=== PATIENT | female | born 1980 | race Caucasian/White ===

== ENCOUNTER → 2017-02-16 | Outpatient (CLI) | payer OTHER, BC ==
[~2017-02-16] MED LIST: ALBU18002 INH; ATV5X PO; BCPILLS PO; BIOT1CAP3 PO; CHOL1000 PO; FLNIN/ NAE; FLX/5 PO; IMT100 PO; MULT-240 PO; NRN800 PO; OMEG10007 PO; PRENTAB26 PO; TERA5CAP PO; TPM100 PO; ULT50 PO
== END | disposition home or self-care (01) ==
LOC: C.PAPS 08:30
PROVIDERS: ATTEND Obstetrics & Gynecology
DX: Z01.419 Encounter for gynecological examination (general) (routine) without abnormal findings (principal)

== ENCOUNTER 2017-04-03 15:50 | Emergency (ER) | payer OTHER, BC ==
[~2017-04-03] VITALS: Ht 167.6 cm; Wt 56.6 kg
[~2017-04-03 15:50] MED LIST changes: -ALBU18002 INH; -ATV5X PO; -BCPILLS PO; -BIOT1CAP3 PO; -CHOL1000 PO; -FLNIN/ NAE; -FLX/5 PO; -IMT100 PO; -MULT-240 PO; -NRN800 PO; -OMEG10007 PO; -TERA5CAP PO; -TPM100 PO; -ULT50 PO
[2017-04-03 15:55] VITALS: TEMP 36.7; Ht 167.6 cm; Wt 56.6 kg
[2017-04-03 16:10] LABS: URINE APPEARANCE TURBID (CLEAR); URINE BILIRUBIN NEG (NEG); URINE COLOR YELLOW; URINE EPITHELIAL CELL AUTO >30 /lpf (0-5); URINE NITRITE NEG (NEG); URINE PH 7.5 (4.5-7.5); URINE SPECIFIC GRAVITY 1.014 (1.000-1.030); UROBILINOGEN NEG (NEG); ZZUR CULT IF INDIC CLEAN CATCH NO
[2017-04-03 16:16] LABS: MANUAL MICROSCOPIC REQUIRED? NO; REVIEW REQ? NO
[2017-04-03] MEDS ORDERED: DEXAMETHASONE SOD INJ 4 MG/ML VIAL IV STA (16:29)
[2017-04-03] MEDS ORDERED: PROMETHAZINE HCL INJ 25 MG in SODIUM CHLORIDE 0.9% 50ML 50 ML IV STA (16:29)
[2017-04-03] MEDS ORDERED: DiphenhydrAMINE HCL 50 MG/ML VIAL IV STA (16:29)
[2017-04-03 17:03] LABS: BASO % 0.4 %; BASO ABS # 0.02 K/uL (0-0.2); COMPLETE YES; EOS % 5.1 %; LYMPH % 20.2 %; LYMPH ABS # 1.11 K/uL (1.2-3.4); MEAN CELL VOLUME 99.3 fL (80-100); MEAN CORPUSCULAR HGB CONC 32.2 g/dl (32-36); MEAN PLATELET VOLUME 10.8 fL (7.4-10.4); MONO % 3.3 %; PLATELET COUNT 174 K/uL (130-400); RED BLOOD COUNT 4.13 M/uL (4.2-5.4)
[2017-04-03] MEDS ORDERED: BIOT1CAP3 PO (17:03)
[2017-04-03] MEDS ORDERED: ATV5X PO (17:03)
[2017-04-03] MEDS ORDERED: IMT100 PO (17:03)
[2017-04-03] MEDS ORDERED: FLX/5 PO (17:03)
[2017-04-03] MEDS ORDERED: OMEG10007 PO (17:03)
[2017-04-03] MEDS ORDERED: ULT50 PO (17:03)
[2017-04-03] MEDS ORDERED: BCPILLS PO (17:03)
[2017-04-03] MEDS ORDERED: FLNIN/ NAE (17:03)
[2017-04-03] MEDS ORDERED: MULT-240 PO (17:03)
[2017-04-03] MEDS ORDERED: NRN800 PO (17:03)
[2017-04-03] MEDS ORDERED: ALBU18002 INH (17:03)
[2017-04-03] MEDS ORDERED: CHOL1000 PO (17:03)
[2017-04-03] MEDS ORDERED: TPM100 PO (17:03)
[2017-04-03] MEDS ORDERED: TERA5CAP PO (17:03)
[2017-04-03 17:19] LABS: PARTIAL THROMBOPLASTIN RATIO 1.1; PROTHROMBIN TIME (PATIENT) 10.4 SECONDS (9.0-12.0)
[2017-04-03 17:27] LABS: CALCIUM 8.5 mg/dl (8.5-10.1); CREATININE 0.84 mg/dl (0.60-1.20); POTASSIUM 3.7 mmol/L (3.5-5.1)
[2017-04-03 17:56] LABS: PREG INTERNAL NEGATIVE QC NEG CLEAR BACKGROUND; PREG INTERNAL POSITIVE QC POS CONTROL LINE
--- NOTE | 2017-04-03 18:20 | DIAGNOSTIC IMAGING REPORT ---
HEAD CT NONCONTRAST CT DOSE: 537.48 mGy.cm HISTORY: Headache headache x 1 weeklong rt side TECHNIQUE: Multiaxial CT images of the head were performed without the use of intravenous contrast. Comparison: None. Findings: The paranasal sinuses and mastoid air cells are clear. The calvarium and skull base are intact. The ventricles and sulci are within normal limits. There is no mass, hematoma, midline shift, or acute infarct. Impression: No acute intracranial abnormality. Electronically signed by: Jean Bonner M.D. 04/03/2017 6:19 PM Dictated Date/Time: 04/03/2017 6:19 PM
[2017-04-03] MEDS ORDERED: HYDROmorphone INJ 1 MG/ML SYR IV STA (18:29)
--- NOTE | 2017-04-03 19:42 | EMERGENCY ROOM VISIT NOTE ---
History First contact with patient: 16:17 Chief Complaint: HEADACHE Stated Complaint: MIGRAINE,BULGING VEIN,HEAD SENSITIVITY,DIZZY History of Present Illness The patient is a 36 year old female who presents to the Emergency Room with complaints of headache. The patient states she has a history of migraine headaches. She states initially she thought her current headache was a migraine. It was on the right side of the head which is typical for her migraines but usually she feels slightly nauseated and can take an Imitrex and abort the headache before it worsens. She states she tried Imitrex and it did not help. She tried the Imitrex again without any relief. She states the headache there is in intensity and has been going on for one week. She states it goes from a 5 to a 10. Currently she rates the headache at a 5 out of 10. The patient also states that the headache is different than her migraines that she has some pain at the base of her neck and states that she sees a being bulging on the right frontal region intermittently when the headache is more severe. The patient denies any vomiting. The patient denies any other visual changes. She states she went to [place] and she was told to come to the emergency room. The patient states there is a history of aneurysm in her terminal grandmother but that was abdominal. Review of Systems 10 system review was performed and was negative unless stated otherwise history of present illness. Past Medical/Surgical History RSD, ankle surgery, knee surgery, jaw surgery, hand surgery, asthma Social History Smoking Status: Never Smoker Alcohol Use: occasionally Marital Status: Housing Status: lives with family Occupation Status: unemployed Current/Historical Medications Scheduled Biotin (Biotin), 1 CAP PO DAILY Control Pills ( Control Pills), 1 TAB PO DAILY Cholecalciferol (Vitamin D3), 1,000 MCG PO DAILY Fish Oil ([place]-3), 1 CAP PO DAILY Fluticasone Propionate (Fluticasone Propionate), 2 SPRAYS SANGEETHA DAILY Gabapentin (Gabapentin), 800 MG PO QID Multiple Vitamins W/ Minerals (Womens One Daily), 1 TAB PO DAILY Terazosin (Hytrin), 5 MG PO HS Topiramate (Topiramate), 100 MG PO BID Scheduled PRN Albuterol Sulfate (Proair Respiclick), 2 PUFFS INH UD PRN for SOB/Wheezing Cyclobenzaprine HCl (Cyclobenzaprine HCl), 5 MG PO TID PRN for Muscle Spasm Lorazepam (Lorazepam), 0.5 MG PO DAILY PRN for Anxiety Sumatriptan Succinate (Imitrex), 100 MG PO UD PRN for Migraine Tramadol HCl (Tramadol HCl), 50 MG PO UD PRN for Pain Allergies Coded Allergies: Mold (Blue) Cheese (Verified Allergy, Severe, SHORTNESS OF BREATH, 08/11/15 ) THROAT SWELLING Codeine (Verified Allergy, Unknown, HIVES, 08/11/15) Penicillins (Verified Allergy, Unknown, HIVES-HAS TOLERATED KEFLEX PER DR CHAPIN, 08/11/15) Physical Exam Vital Signs Date Time Temp Pulse Resp B/P Pulse Ox O2 Delivery O2 Flow Rate FiO2 04/03/17 18:07 92 16 104/89 93 Room Air 04/03/17 15:55 36.7 115 16 149/96 98 Room Air Physical Exam GENERAL: 36-year-old white female appears in no acute distress. MENTAL STATUS: Patient is alert and oriented x3 HEAD: The patient has tenderness palpation over the right parietal region of her head. EYES: PERRLA. EOMs intact. EARS: Canals clear. TMs without fluid level noted. NECK: Supple, no lymphadenopathy noted. No carotid bruits noted. LUNGS: Clear auscultation without wheezes rales or rhonchi. CARDIAC: Regular rate and rhythm without murmur. Pulses is full and equal throughout. NEURO:Cranial nerves two through 12 intact. Cerebellar function intact with [id number]. Fine motor intact with alternating finger motions. CERVICAL SPINE: Patient is nontender to palpation over the spinous processes in the paravertebral region. Patient has full range of motion but it is painful. She does have known cervical disease. Medical Decision & Procedures ER Provider Diagnostic Interpretation: HEAD CT NONCONTRAST CT DOSE: 537.48 mGy.cm HISTORY: Headache headache x 1 weeklong rt side TECHNIQUE: Multiaxial CT images of the head were performed without the use of intravenous contrast. Comparison: None. Findings: The paranasal sinuses and mastoid air cells are clear. The calvarium and skull base are intact. The ventricles and sulci are within normal limits. There is no mass, hematoma, midline shift, or acute infarct. Impression: No acute intracranial abnormality. Electronically signed by: Jean Bonner M.D. 04/03/2017 6:19 PM Dictated Date/Time: 04/03/2017 6:19 PM Laboratory Results 04/03/17 16:50 Red Blood Count 4.13, Mean Corpuscular Volume 99.3, Mean Corpuscular Hemoglobin 32.0, Mean Corpuscular Hemoglobin Concent 32.2, Mean Platelet Volume 10.8, Neutrophils (%) (Auto) 71.0, Lymphocytes (%) (Auto) 20.2, Monocytes (%) (Auto) 3.3, Eosinophils (%) (Auto) 5.1, Basophils (%) (Auto) 0.4, Neutrophils # (Auto) 3.91, Lymphocytes # (Auto) 1.11, Monocytes # (Auto) 0.18, Eosinophils # (Auto) 0.28, Basophils # (Auto) 0.02 04/03/17 16:50 Test 04/03/17 15:55 04/03/17 16:50 Urine Color YELLOW Urine Appearance TURBID (CLEAR) Urine pH 7.5 (4.5-7.5) Urine Specific [place] 1.014 (1.000-1.030) Urine Protein NEG (NEG) Urine Glucose (UA) NEG (NEG) Urine Ketones NEG (NEG) Urine Occult Blood NEG (NEG) Urine Nitrite NEG (NEG) Urine Bilirubin NEG (NEG) Urine Urobilinogen NEG (NEG) Urine Leukocyte Esterase NEG (NEG) Urine WBC (Auto) 1-5 /hpf (0-5) Urine RBC (Auto) 0-4 /hpf (0-4) Urine Hyaline Casts (Auto) 1-5 /lpf (0-5) Urine Epithelial Cells (Auto) >30 /lpf (0-5) Urine Bacteria (Auto) NEG (NEG) Urine Test NEG (NEG) White Blood Count 5.50 K/uL (4.8-10.8) Red Blood Count 4.13 M/uL (4.2-5.4) Hemoglobin 13.2 g/dL (12.0-16.0) Hematocrit 41.0 % (37-47) Mean Corpuscular Volume 99.3 fL (80-100) Mean Corpuscular Hemoglobin 32.0 pg (25-34) Mean Corpuscular Hemoglobin Concent 32.2 g/dl (32-36) Platelet Count 174 K/uL (130-400) Mean Platelet Volume 10.8 fL (7.4-10.4) Neutrophils (%) (Auto) 71.0 % Lymphocytes (%) (Auto) 20.2 % Monocytes (%) (Auto) 3.3 % Eosinophils (%) (Auto) 5.1 % Basophils (%) (Auto) 0.4 % Neutrophils # (Auto) 3.91 K/uL (1.4-6.5) Lymphocytes # (Auto) 1.11 K/uL (1.2-3.4) Monocytes # (Auto) 0.18 K/uL (0.11-0.59) Eosinophils # (Auto) 0.28 K/uL (0-0.5) Basophils # (Auto) 0.02 K/uL (0-0.2) RDW Standard Deviation 44.6 fL (36.4-46.3) RDW Coefficient of Variation 12.3 % (11.5-14.5) Immature Granulocyte % (Auto) 0.0 % Immature Granulocyte # (Auto) 0.00 K/uL (0.00-0.02) Erythrocyte Sedimentation Rate 6 mm/hr (0-21) Prothrombin Time 10.4 SECONDS (9.0-12.0) Prothromb Time International Ratio 1.0 (0.9-1.1) Activated Partial Thromboplast Time 27.4 SECONDS (21.0-31.0) Partial Thromboplastin Ratio 1.1 Anion Gap 7.0 mmol/L (3-11) Est Creatinine Clear Calc Drug Dose 81.1 ml/min Estimated GFR () 102.2 Estimated GFR (Non- 88.2 BUN/Creatinine Ratio 17.0 (10-20) Calcium Level 8.5 mg/dl (8.5-10.1) Medications Administered Medications (Trade) Dose Ordered Sig/Qiana Route Start Time Stop Time Status Last Admin Dose Admin Diphenhydramine HCl (Benadryl Inj) 50 mg NOW STAT IV 04/03/17 16:29 04/03/17 16:34 DC 04/03/17 17:02 50 MG Dexamethasone Sodium Phosphate 10 mg 10 mg NOW STAT IV 04/03/17 16:29 04/03/17 16:34 DC 04/03/17 16:29 10 MG Promethazine HCl/ Sodium Chloride (Phenergan Inj/ Nss 50ml) 51 ml @ 204 mls/hr NOW STAT IV 04/03/17 16:29 04/03/17 16:43 DC 04/03/17 17:18 204 MLS/HR Hydromorphone HCl (Dilaudid Inj) 1 mg NOW STAT IV 04/03/17 18:29 04/03/17 18:30 DC 04/03/17 18:57 1 MG ED Course The patient was evaluated. The patient's EMR and medication list were reviewed. IV access was obtained. The patient was given Benadryl 25 mg IV, Decadron 10 mg IV, Phenergan 25 mg IV for her headache. CBC and differential, renal profile, coags, sedimentation rate was ordered. Urine dip was negative for . CT of the head was ordered and interpreted by the radiologist as above without any acute findings. Labs are reviewed and were unremarkable. The patient was informed of the findings and reevaluated. The patient stated she still had pain in the right side of her head. The patient was then given Dilaudid 1 mg IV. The patient was reevaluated and was feeling much better. The patient does admit that she has tramadol to take at home but did not take it for this pain. The patient was discharged home in stable condition with her driving. Medical Decision Differential includes: Flare of the patient's RSD in this area, Acute intracranial bleed, trauma, meningitis, encephalitis, increased intracranial pressure, mass or mass effect, facial or dental infection, temporal arteritis, CVA, TIA, acute hypertensive emergency, sinusitis, carbon monoxide exposure. Impression Primary Impression: Head pain Departure Information Dispostion Home / Self-Care Condition GOOD Referrals Cecile Younger D.O. (PCP) Forms HOME CARE DOCUMENTATION FORM, IMPORTANT VISIT INFORMATION Patient Instructions Headache Pain, My [facility] [employer] Additional Instructions Continue all medications as prescribed. Take tramadol as needed for current head pain. Do not drive while taking the tramadol. This had pain could be due to year RSD. Recommend follow-up with your family doctor in 2 days for recheck. If symptoms worsen in the interim, return to ER. Problem Qualifiers Primary Impression: Head pain Headache type: unspecified Headache chronicity pattern: acute headache
[2017-04-03 20:00] VITALS: BP 116/66; PULSE 67; O2SAT 97
== END 2017-04-03 20:33 | disposition home or self-care (01) ==
LOC: C.EDB 15:50
DX: R51 Headache (principal); G90.50 Complex regional pain syndrome I, unspecified; J45.909 Unspecified asthma, uncomplicated; Z79.3 Long term (current) use of hormonal contraceptives; Z79.899 Other long term (current) drug therapy